=== PATIENT | female | born 1945 | race Native Hawaiian/Other Pacific Islander ===

== ENCOUNTER 2017-10-26 22:45 | Emergency (ER) | payer MEDICARE, SELFPAY ==
[2017-10-26 22:58] VITALS: BP 185/80; PULSE 112; RESP 25; TEMP 37.2; O2SAT 86
--- NOTE | 2017-10-26 23:09 | ED.SOB ---
HPI - SOB/Dyspnea General Chief Complaint: Shortness of Breath/Dyspnea Stated Complaint: ASTHMA ATTACK Time Seen by Provider: 10/26/17 23:31 Source: patient Mode of arrival: ambulatory Limitations: no limitations History of Present Illness Patient is a 72-year-old female who presents with increasing shortness of breath. She has a history of asthma her breathing got worse today. She has an inhaler but not a spacer she was using it but not getting much better. She also has upper respiratory infection all and sinus congestion. She is visiting from [facility] and arrived in the past few days. She denies any smoking history. MD Complaint: shortness of breath Related Data Previous Rx's Medication Instructions Recorded prednisone 20 mg PO DAILY #5 tab 10/27/17 Allergies Allergy/AdvReac Type Severity Reaction Status Date / Time Sulfa (Sulfonamide Allergy Swelling Verified 10/26/17 23:15 Antibiotics) of Lip/Tongue/Throat Review of Systems Review of Systems All systems reviewed & are unremarkable except as noted in HPI and below Constitutional Denies chills, Denies fever(s), Denies lethargy and Denies weakness ENT Ears, Nose, Mouth, and Throat: Reports facial pain Cardiovascular Denies chest pain, Denies irregular heart rhythm, Denies lightheadedness, Denies palpitations and Denies orthopnea Respiratory Reports as per HPI Musculoskeletal Denies back pain, Denies muscle weakness, Denies numbness and Denies tingling Integumentary/Breasts Denies pruritus, Denies erythema, Denies rash and Denies wounds Neurologic Denies numbness, Denies tingling and Denies weakness Endocrine Denies palpitations PFSH Medical History Asthma (Acute) Hyperlipidemia (Acute) Hypertension (Acute) Social History Smoking Status: Never smoker Exam Initial Vital Signs Initial Vital Signs: Vital Signs Temperature 98.9 F 10/26/17 22:58 Pulse Rate 112 H 10/26/17 22:58 Respiratory Rate 25 H 10/26/17 22:58 Blood Pressure 185/80 H 10/26/17 22:58 Pulse Oximetry 86 L 10/26/17 22:58 Const General: cooperative and in distress (Dyspnea) [facility] Head: normal to inspection and normocephalic Eyes General: appearance normal, both eyes and all related structures Neck Neck: normal visual inspection, full ROM, no meningeal signs and trachea midline Chest Chest: normal inspection of the chest Resp Effort & Inspection: decreased respiratory effort Auscultation: diminished lung sounds bilaterally and wheezes Cardio Rate: regular rate Rhythm: regular rhythm Heart Sounds: no click, no gallops, no murmurs and no rubs Pulses: normal peripheral pulses Skin General: no rashes or lesions noted, No jaundice and No petechiae Neuro General: alert, oriented x3, gait normal and no focal motor deficits Speech: speech normal Extrem General: normal to inspection, full ROM, capillary refill normal, no pedal edema and no calf tenderness Course Orders Ordered: ED Orders 10/26/17 23:36 B Type Natriuretic Peptide Stat Complete Blood Count AUTO DIFF Stat Comprehensive Metabolic Panel Stat Troponin & CK Cardiac Panel Stat 10/26/17 23:40 Consult to Respiratory Therapy Evaluate & Treat CT angio chest PE protocol Stat EKG-12 Lead Stat Discontinued Medications Albuterol (Ventolin) 2.5 mg INH NOW ONE Stop: 10/26/17 23:01 Last Admin: 10/26/17 23:13 Dose: 2.5 mg Albuterol (Ventolin) 2.5 mg INH NOW ONE Stop: 10/26/17 23:02 Last Admin: 10/26/17 23:13 Dose: 2.5 mg Albuterol/Ipratropium (Duoneb) 3 ml INH NOW ONE Stop: 10/26/17 23:02 Last Admin: 10/26/17 23:14 Dose: 3 ml Albuterol/Ipratropium (Duoneb) 3 ml INH NOW ONE Stop: 10/26/17 23:40 Last Admin: 10/27/17 00:43 Dose: 3 ml Sodium Chloride (Normal Saline 0.9%) 1,000 mls @ 150 mls/hr IV CONT RODY Last Infusion: 10/27/17 01:09 Dose: 0 mls/hr Admin: 10/26/17 23:49 Dose: 150 mls/hr Methylprednisolone (Solu-Medrol 125 Mg Vial) 125 mg IV NOW ONE Stop: 10/26/17 23:40 Last Admin: 10/26/17 23:49 Dose: 125 mg Vital Signs - 8 hr 10/26/17 22:58 10/26/17 23:15 10/26/17 23:44 Temperature 98.9 F Pulse Rate 112 H 88 104 H Respiratory Rate 25 H 18 20 Blood Pressure 185/80 H Blood Pressure [Left Arm] 133/75 H Pulse Oximetry 86 L 93 94 10/27/17 01:08 Temperature Pulse Rate 101 H Respiratory Rate 18 Blood Pressure 140/72 H Blood Pressure [Left Arm] Pulse Oximetry 98 MDM - SOB/Dyspnea Lab Data Attestation: I reviewed the patient's lab results. Result diagrams: 10/26/17 23:36 10/26/17 23:36 Lab Results 10/26/17 10/26/17 Range/Units 23:36 23:36 WBC 7.6 (4.5-11.0) X10^3/uL RBC 4.64 (4.0-5.2) X10^6/uL Hgb 15.0 (12.0-16.0) g/dL Hct 44.0 (36-46) % MCV 94.8 (80-100) fL MCH 32.3 (26-34) PG MCHC 34.1 (30-36) % RDW 12.9 (11.6-14.8) % Plt Count 215 (150-400) X10^3/uL Neut % (Auto) 54.5 (50-75) % Lymph % (Auto) 31.7 (25-40) % [place] % (Auto) 8.8 (3-14) % Eos % (Auto) 4.5 H (2-4) % Baso % (Auto) 0.5 (0-2) % Neut # (Auto) 4100 (3683-8016) /uL Sodium 142 (137-145) mmol/L Potassium 3.9 (3.4-5.1) mmol/L Chloride 102 (98-107) mmol/L Carbon Dioxide 31 (22-32) mmol/L BUN 19 H (7-17) mg/dL Creatinine 0.80 (0.52-1.04) mg/dL Estimated GFR > 60.0 (>60) mL/min BUN/Creatinine Ratio 23.8 H (6-22) Glucose 137 H (80-110) mg/dL Calcium 9.1 (8.4-10.2) mg/dL Total Bilirubin 0.3 (0.2-1.3) mg/dL AST 34 (14-36) IU/L ALT 33 (9-52) IU/L Alkaline Phosphatase 65 (38-126) U/L Total Creatine Kinase 162 H (30-135) U/L CK-MB (CK-2) 3.00 H (<2.37) ng/mL CK-MB (CK-2) Rel Index 1.9 (1.5-5.0) % Troponin I < 0.012 (0.01-0.034) ng/mL B-Natriuretic Peptide < 100.0 (<100) Total Protein 7.3 (6.3-8.2) g/dL Albumin 4.4 (3.5-5.0) g/dL Globulin 2.9 (1.7-4.1) g/dL Albumin/Globulin Ratio 1.5 (1.0-2.8) Imaging Data CT PE: 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 Small questionable filling defect in the right hilum right lower branch most likely artifactual cannot completely exclude small pulmonary emboli. Patchy right upper lobe opacity possible airspace disease pneumonia imaging followup recommended to exclude nodule. Incidental right upper prominent gallbladder wall and probable cholelithiasis. ECG Data Attestation: I personally reviewed and interpreted this ECG as follows: Prior ECG tracings: not available for review Interpretation: Sinus tachycardia rate 100 Q-waves noted in inferior leads no acute ST changes or T-wave inversions no priors to compare MDM Narrative Medical decision making narrative: Patient has a history of asthma she got better with bronchodilators. Risk factor for possible PE due to recent long airplane flight. CT has a questionable filling defect but is likely artifact. Patient's signs and symptoms clinically correlate with asthma exacerbation. No leukocytosis or fever to suggest infection. She does have some upper respiratory like symptoms but no indication for antibiotics at this time. Discharge Plan Departure Patient Disposition: Home, Self-Care Clinical Impression: Asthma with exacerbation Discharge Date/Time: 10/27/17 01:08 Interventions: ED Discharge Assessment Last Done: 10/27/17 01:08 Instructions: Asthma -- Adult Activity Restrictions/Additional Instructions: *You have been diagnosed with asthma exacerbation *What to do: *Continue to take medications as directed Prednisone 20 mg once a dayx5 days *Follow up with your primary care provider in 2-3 days *Return to ER if you should have increasing chest pain, shortness of breath or any new, worsening or concerning symptoms Prescriptions: New prednisone 20 mg tablet 20 mg PO DAILY Qty: 5 RF: 0
[2017-10-26] MEDS: ALBUTEROL 2.5 MG/3 ML NEB (ADULT) INH ×2 (23:13)
[2017-10-26] MEDS: ALBUTEROL/IPRATROPIUM 3 ML AMPUL INH (23:14)
[2017-10-26 23:15] VITALS: PULSE 88; RESP 18; O2SAT 93
--- NOTE | 2017-10-26 23:40 | DI.CT.S_ITS ---
PROCEDURE: CT ANGIO CHEST PE PROTOCOL INDICATIONS: sob hypoxia TECHNIQUE: After the administration of intravenous contrast, 2 mm thick sections acquired from the pulmonary apices to the posterior costophrenic angles. 3-dimensional maximum intensity projection (MIP) coronal and sagittal reformats were then acquired through the thorax. For radiation dose reduction, the following was used: automated exposure control, adjustment of mA and/or kV according to patient size. COMPARISON: None. FINDINGS: Image quality: Respiratory motion. Pulmonary arteries: Pulmonary arteries are normal in size, and demonstrate no intraluminal filling defects to suggest central pulmonary embolism. Lungs and pleura: Lungs are clear except for minimal ground glass opacities posterior right upper lobe, indeterminate.. No pleural effusions or pneumothorax. Central and peripheral airways are patent. Mediastinum: Heart size is normal, without pericardial effusion. No mediastinal or hilar adenopathy. Thoracic aorta is normal in caliber and enhancement. Esophagus is normal in caliber, without hiatal hernia. Bones and chest wall: No suspicious bony lesions. Ribs and thoracic spine appear intact throughout. Thyroid gland appears normal. No axillary or supraclavicular adenopathy. Abdomen: Visualized upper abdominal solid organs appear normal in the early arterial phase of enhancement. Exophytic cyst left kidney. Gallbladder incompletely included. Probable small hiatal hernia. IMPRESSION: 1. No central pulmonary embolic disease. Small, peripheral emboli cannot be excluded on this exam. 2. No urticaria aneurysm or dissection. 3. Probable small hiatal hernia. 4. Exophytic cyst left kidney. Findings are concordant with the preliminary report. Dictated by: Justice Colin M.D. on 10/27/2017 at 8:06 Approved by: Justice Colin M.D. on 10/27/2017 at 8:10
[2017-10-26 23:44] VITALS: BP 133/75; PULSE 104; RESP 20; O2SAT 94
[2017-10-26 23:48] LABS: Add Manual Diff / Slide Review NO; Basophils Percent Auto 0.5 % (0-2); Eosinophils Percent Auto 4.5 % (2-4); Lymphocytes Percent Auto 31.7 % (25-40); Mean Corpuscular HGB Conc 34.1 % (30-36); Mean Corpuscular Hemoglobin 32.3 PG (26-34); Mean Corpuscular Volume 94.8 fL (80-100); Monocytes Percent Auto 8.8 % (3-14); Neutrophils Absolute Auto 4100 /uL (3000-5900); Neutrophils Percent Auto 54.5 % (50-75); Platelet Count 215 X10^3/uL (150-400); Red Blood Cell Count 4.64 X10^6/uL (4.0-5.2); Red Cell Distribution Width 12.9 % (11.6-14.8); White Blood Cell Count 7.6 X10^3/uL (4.5-11.0)
[2017-10-26] MEDS: methylPREDNISolone 125 MG/2 ML VIAL IV (23:49)
[2017-10-26] MEDS: SODIUM CHLORIDE 0.9% 1,000 ML 150 ML IV (23:49)
[2017-10-26 23:59] LABS: Alanine Aminotransferase 33 IU/L (9-52); Albumin 4.4 g/dL (3.5-5.0); Albumin Globulin Ratio 1.5 (1.0-2.8); Alkaline Phosphatase 65 U/L (38-126); Aspartate Aminotransferase 34 IU/L (14-36); BUN Creatinine Ratio 23.8 (6-22); Bilirubin Total 0.3 mg/dL (0.2-1.3); Blood Urea Nitrogen 19 mg/dL (7-17); Calcium 9.1 mg/dL (8.4-10.2); Carbon Dioxide 31 mmol/L (22-32); Chloride 102 mmol/L (98-107); Creatine Kinase 162 U/L (30-135); Estimated Glomerular Filt Rate > 60.0 mL/min (>60); Globulin 2.9 g/dL (1.7-4.1); Glucose 137 mg/dL (80-110); HEMOLYSIS < 15 (0-50); Potassium 3.9 mmol/L (3.4-5.1); Sodium 142 mmol/L (137-145); Total Protein 7.3 g/dL (6.3-8.2)
[2017-10-27 00:07] LABS: B Type Natriuretic Peptide < 100.0 (<100)
[2017-10-27 00:11] LABS: Troponin I < 0.012 ng/mL (0.01-0.034)
[2017-10-27 00:14] LABS: CKMB % Relative Index 1.9 % (1.5-5.0)
[2017-10-27] MEDS: ALBUTEROL/IPRATROPIUM 3 ML AMPUL INH (00:43)
[2017-10-27 01:08] VITALS: BP 140/72; PULSE 101; RESP 18; O2SAT 98
== END 2017-10-27 01:08 | disposition home or self-care (01) ==
PROVIDERS: Emergency Provider Emergency Medicine
DX: J45.909 Unspecified asthma, uncomplicated (principal)
CPT/HCPCS: 36591; 71275; 80053; 82550; 82553; 83880; 84484; 85025; 93005; 93010; 94150; 94640; 96361; 96374; 99283; 99285; J2930; J7613; Q9967